=== PATIENT | female | born 1995 | race African-American/Black ===

== ENCOUNTER 2017-03-05 20:18 | Emergency (ER) | payer OTHER ==
[~2017-03-05] VITALS: Ht 172.7 cm; Wt 101.8 kg
[2017-03-05 20:30] VITALS: TEMP 98
[2017-03-05 21:17] LABS: COLLECTION METHOD CLEAN CATCH
[2017-03-05 21:19] LABS: BASO % 0.4 % (0.0-2.0); EOS # 0.1 (0.0-0.7); EOS % 0.9 % (0-4.0); GRAN # 6.9 (1.4-6.5); GRAN % 65.1 % (42.2-75.2); HEMATOCRIT 42.8 % (37.0-47.0); HEMOGLOBIN 14.2 g/dl (12.5-16.0); LYMPH # 2.5 (1.2-3.4); LYMPH % 23.5 % (20.0-51.0); MEAN CELL VOLUME 85 fl (80.0-100.0); MEAN CORPUSCULAR HEMOGLOBIN 28 pg (27.0-31.0); MEAN CORPUSCULAR HGB CONC 33 g/dl (33.0-37.0); MEAN PLATELET VOLUME 10.2 fl (7.4-10.4); MONO % 9.8 % (1.7-9.3); PLATELET COUNT 266 K/mm3 (130-400); RED BLOOD COUNT 5.04 M/mm3 (4.10-5.30); REDCELL DISTRIBUTION WIDTH-CV 12.6 % (11.5-14.5)
[2017-03-05 21:25] LABS: MUCOUS Present /lpf; PH 6 (5-8); SQUAMOUS EPITHELIAL >50 /hpf; URINE APPEARANCE Cloudy; URINE BACTERIA Rare /hpf; URINE BILIRUBIN Negative (NEGATIVE); URINE BLOOD 2+ (NEGATIVE); URINE CALCIUM OXALATE CRYSTAL Present /hpf; URINE COLOR Yellow; URINE GLUCOSE Negative (NEGATIVE); URINE KETONE Negative (NEGATIVE); URINE LEUKOCYTE ESTERASE 2+ (NEGATIVE); URINE NITRATE Negative (NEGATIVE); URINE PROTEIN(semi-quant) 1+ (NEGATIVE); URINE RBC >50 /hpf; URINE UROBILINOGEN Negative (NEGATIVE)
[2017-03-05 21:32] LABS: ALBUMIN 4.8 gm/dL (3.5-5.0); BILIRUBIN,TOTAL 0.6 mg/dL (0.0-1.0); C-REACTIVE PROTEIN 1.1 mg/dL (0.0-0.9); CALCIUM 9.7 mg/dL (8.4-10.2); CREATININE, serum 0.78 mg/dL (0.52-1.25); POTASSIUM 3.9 mmol/L (3.4-5.0); TOTAL PROTEIN 8.2 gm/dL (6.4-8.2)
[2017-03-05] MEDS ORDERED: MACROBID 1100 MG/CAP PO (22:46)
[2017-03-05] MEDS ORDERED: ZOFRAN ODT4 MG PO (22:46)
[2017-03-05 22:50] VITALS: BP 118/80; PULSE 71
== END 2017-03-05 23:00 | disposition home or self-care (01) ==
LOC: COL.ER 20:18
PROVIDERS: Family Medicine
DX: N39.0 Urinary tract infection, site not specified (principal)
CPT/HCPCS: J0696; J2550; J3010; J7030